=== PATIENT | female | born 1980 | race Asian ===

== ENCOUNTER 2023-02-03 22:08 | Emergency (ER) | payer OTHER ==
[~2023-02-03] VITALS: Ht 154.9 cm; Wt 2.3 kg
--- NOTE | 2023-02-03 22:22 | NUR ---
BIB partner management consultant and police from the street s/p walking around naked. Informed of plan of care, placed on monitor, seen by ER provider. No s/s of any distress noted at this time.
--- NOTE | 2023-02-03 22:42 | NUR ---
Lab at bedside for draw.
[2023-02-03 22:51] LABS: HEMATOCRIT 41.6 % (31.2-41.9); MEAN CORPUSCULAR HEMOGLOBIN 27.6 uug (24.7-32.8); MEAN CORPUSCULAR VOLUME 85.1 fL (75.5-95.3); PLATELET COUNT (AUTO) 282 K/uL (179-408)
[2023-02-03 23:02] LABS: *BILIRUBIN,URIN NEGATIVE (NEGATIVE); *BLOOD, URINE 3+ (NEGATIVE); *CLARITY,URINE CLEAR (CLEAR); *COLOR,URINE YELLOW (YELLOW); *KETONES,URINE 2+ (NEGATIVE); *UROBILINOGEN,URINE 0.2 E.U./dl (NORMAL); LEUKOCYTE ESTERASE ,URINE NEGATIVE (NEGATIVE); NITRITE, URINE NEGATIVE (NEGATIVE); PH,URINE 5.5 (5.0-8.0); UGLUCOSE NEGATIVE (NEGATIVE)
[2023-02-03 23:02] LABS: CARBON DIOXIDE 26 mmol/L (21-32); CHLORIDE 102 mmol/L (98-107); POTASSIUM 3.3 mmol/L (3.5-5.1); UREA NITROGEN, BLOOD 12 mg/dL (7-18)
[2023-02-03 23:07] LABS: ALANINE AMINOTRANSFERASE 68 U/L (14-59); ALKALINE PHOSPHATASE 53 U/L (50-136); ASPARTATE AMINOTRANSFERASE 23 U/L (15-37); BILIRUBIN,DIRECT 0.1 mg/dL (0.0-0.2); BILIRUBIN,TOTAL 0.4 mg/dL (0.2-1.0); CREATINE KINASE, TOTAL 358 U/L (26-192); TOTAL PROTEIN, SERUM 8.2 g/dL (6.4-8.2)
[2023-02-03 23:10] LABS: ACETAMINOPHEN < 2.0 ug/mL (10-30)
[2023-02-03 23:12] LABS: *AMPHETAMINE, URINE NEGATIVE (NEGATIVE); *CANNABINOID, URINE NEGATIVE (NEGATIVE); *COCCAINE, URINE NEGATIVE (NEGATIVE); *PHENCYCLIDINE SCREEN,URINE NEGATIVE (NEGATIVE)
[2023-02-03 23:13] LABS: BACTERIA,URINE FEW /HPF (NONE SEEN); RBC,URINE 50-80 /HPF (0-3); WBC,URINE 0-3 /HPF (0-3)
[2023-02-03 23:14] LABS: SQUAMOUS EPITHELIAL CELL,UR FEW /HPF (NONE SEEN)
--- NOTE | 2023-02-03 23:59 | NUR ---
Patient rest without any c/o.
--- NOTE | 2023-02-04 00:16 | NUR ---
Crisis steamer gum candy called into evaluate patient.
--- NOTE | 2023-02-04 00:33 | NUR ---
Patient standing at bedside crying, assisted back to bed, informed awaiting crisis tile finisher.
--- NOTE | 2023-02-04 00:59 | NUR ---
Art at bedside for evaluation.
[2023-02-04] MEDS ORDERED: OLANZAPINE 5 MG TABLET PO ONE (01:15)
[2023-02-04] MEDS ORDERED: OLANZAPINE 5 MG TABLET ONE (01:24)
--- NOTE | 2023-02-04 01:37 | NUR ---
Edith Avendaño (sister) can be reached at .
--- NOTE | 2023-02-04 02:32 | NUR ---
Patient sleeping at this time, no s/s of any distress noted, will continue to monitor.
--- NOTE | 2023-02-04 03:46 | NUR ---
Patient continues to rest without any c/o.
[2023-02-04 04:26] VITALS: O2SAT 99
--- NOTE | 2023-02-04 04:27 | NUR ---
Patent awake at this time, voices no c/o pain or discomfort. States that her boyfriend will pick her up in the morning, will continue to monitor.
--- NOTE | 2023-02-04 05:43 | NUR ---
Patient awake, standing in room, talking no c/o at this time awaiting ER provider re-eval.
--- NOTE | 2023-02-04 06:48 | NUR ---
Patient up sitting in chair in room on cell phone, waiting for psychosocial rehabilitation counselor. No voiced c/o at this time.
--- NOTE | 2023-02-04 07:05 | NUR ---
Report given to Joan, patient remais stable.
--- NOTE | 2023-02-04 07:37 | NUR ---
EATING & DRINKING: Ordered breakfast and awaiting delivery.
--- NOTE | 2023-02-04 07:37 | NUR ---
REPORT RECEIVED FROM NIGHT NURSE; 1) MENTAL STATUS: AOx4 - no sign of confusion, or disorientated observed at the time of this report. 2) BREATHING: Patient asleep comfortably, no sign of SOB, distress observed at the time of this report. 3) EATING & DRINKING: Patient can eat and drink, no restrictions. 4) MOBILITY: Patient is fully mobile, no limitations. 5) ELIMINATION: Fully continent, and has BRP. 6) SKIN: Inatct, no broken skin or bruises observed. 7) SAFETY: Independent - has a stable gait. 8) PLAN: Await social media marketing analyst review.
--- NOTE | 2023-02-04 07:47 | NUR ---
EATING & DRINKING: Breakfast provided & water with no ice.
--- NOTE | 2023-02-04 10:00 | NUR ---
DISCHARGE PLANNIN) Gisel social sciences instructor saw patient and await placemnet being arranged by outdoor power equipment mechanic at [facility]. 2) If [facility] doesn't accept patient to inform Gisel for the next plan.
[2023-02-04] MEDS ORDERED: OLANZAPINE 10 MG VIAL IM ONE ×2 (10:30→10:41)
[2023-02-04] MEDS ORDERED: LORAZEPAM 2 MG/1 ML VIAL ONE (10:40)
[2023-02-04] MEDS ORDERED: LORAZEPAM 2 MG/1 ML VIAL IM ONE (10:45)
--- NOTE | 2023-02-04 10:58 | NUR ---
DISCHARGE PLANNIN) Faxed documents to Jamie and and Rhiannon Huff confirmed receipt. 2) Will call back once an assessment has been done.
--- NOTE | 2023-02-04 11:23 | NUR ---
DISCHARGE PLANNIN) Rhiannon Huff called will collect patient jairo. Will call with ETA jairo.
--- NOTE | 2023-02-04 11:35 | NUR ---
DISCHARGE PLANNIN) Called and left a message for Pilar Avendaño - left a message re:discharge planning.
--- NOTE | 2023-02-04 13:18 | NUR ---
CALLED Rhiannon billings 13:15hrs - waiting for arrival at the time of this report.
== END 2023-02-04 13:42 ==
LOC: EDBD 22:08 → ER 22:08
DX: F31.9 Bipolar disorder, unspecified (principal); R10.2 Pelvic and perineal pain; Z20.822 Contact with and (suspected) exposure to COVID-19
CPT/HCPCS: 80076; 80048; 81001; 82550; 85025; 87426; 84702; 36415; 99285; 80299; 80320; 80307; 96372 ×2; J2060; A4663; G0480; J2358